=== PATIENT | female | born 1945 | race Caucasian/White ===

== ENCOUNTER 2017-09-18 06:01 | Day surgery (SDC) | payer OTHER ==
[~2017-09-18] VITALS: Ht 154.9 cm; Wt 57.6 kg
[~2017-09-18 06:01] MED LIST: ASPI81CH PO; CALTRATE 600 +1 EACH PO; ESTR2 PO; FISHOIL; ISOMON30 PO; METO25ER PO; OMEP20ER PO; Prilosec Otc20 MG PO
[2017-09-19 05:40] LABS: BASOPHILS ABSOLUTE AUTO 0.04 K/mm3 (0.00-0.23); BASOPHILS PERCENT AUTO 1 % (0-2); EOSINOPHILS ABSOLUTE AUTO 0.06 K/mm3 (0.00-0.68); EOSINOPHILS PERCENT AUTO 1 % (0-6); Hematocrit 30.3 % (33.0-51.0); Hemoglobin 10.1 g/dL (11.5-16.0); IMMATURE GRAN ABSOLUTE AUTO 0.03 K/mm3 (0.00-0.10); IMMATURE GRAN PERCENT AUTO 0 % (0-1); LYMPHOCYTES ABSOLUTE AUTO 1.05 K/mm3 (0.84-5.20); LYMPHOCYTES PERCENT AUTO 15 % (21-46); MONOCYTES ABSOLUTE AUTO 0.87 K/mm3 (0.16-1.47); MONOCYTES PERCENT AUTO 12 % (4-13); Mean Corpuscular HGB 31.8 pg (26.0-34.0); Mean Corpuscular HGB Conc 33.3 g/dL (31.5-36.5); Mean Corpuscular Volume 95 fL (80-100); Mean Platelet Volume 10.5 fL (9.1-12.4); NEUTROPHILS ABSOLUTE AUTO 4.99 K/mm3 (1.96-9.15); NEUTROPHILS PERCENT AUTO 71 % (41-73); Platelet Count 160 K/mm3 (150-400); RDW Coefficient Variation 12.5 % (11.7-14.2); RDW Standard Deviation 44.4 fL (35.1-46.3); Red Blood Cell Count 3.18 M/mm3 (3.80-5.20); White Blood Cell Count 7.04 K/mm3 (4.00-11.30)
[2017-09-19 05:57] LABS: Anion Gap 7 mmol/L (6-16); Blood Urea Nitrogen 10 mg/dL (8-24); Bun/Creatinine Ratio 18.9 (12.0-20.0); CO2, Blood 25 mmol/L (21-32); Calcium, Blood 8.2 mg/dL (8.5-10.1); Chloride, Blood 103 mmol/L (98-108); Creatinine, Blood 0.53 mg/dL (0.40-1.00); Glomerular Filtration Rate >60 (60-); Glucose, Blood 124 mg/dL (70-99); Potassium, Blood 3.8 mmol/L (3.5-5.5); Sodium, Blood 135 mmol/L (136-145)
[2017-09-19] MEDS ORDERED: HYDR1TAB94 PO (13:28)
[2017-09-19] MEDS ORDERED: DOCU100 PO (13:30)
[2017-09-19] MEDS ORDERED: ASPI325EC PO ×2 (13:31→13:34)
[2017-09-19] MEDS ORDERED: ONDA4ODT MM (13:33)
== END 2017-09-19 14:26 | disposition home or self-care (01) ==
LOC: SURS 06:01 → PRE IP 06:01 → ORSCMMR 06:01 → PRE IP 07:30 → EDSTATUS 07:30 → SURS 11:15 → ORSCMMR 09-19 14:26 → SURS 09-19 14:26
PROVIDERS: Orthopaedic Surgery
PROC: 0SRD0J9 Replacement of Left Knee Joint with Synthetic Substitute, Cemented, Open Approach (ICD-10-PCS; principal; 2017-09-18 07:30)
DX: M17.12 Unilateral primary osteoarthritis, left knee (principal); E78.00 Pure hypercholesterolemia, unspecified; Z79.899 Other long term (current) drug therapy; Z79.82 Long term (current) use of aspirin
CPT/HCPCS: 36415; 73560-LT; 80048; 85025; 86850; 86900; 86901; 88300; 97110; 97116; 97162; 97530; C1713; C1776; G8978; G8979; J0171; J0690; J0735; J1885; J2250; J2405; J2765; J2795; J3010; J7120

== ENCOUNTER 2019-04-29 05:58 | Day surgery (SDC) | payer OTHER ==
[~2019-04-29] VITALS: Ht 154.9 cm; Wt 59.8 kg
[~2019-04-29 05:58] MED LIST changes: +ASPI325EC PO; +DOCU100 PO; +HYDR1TAB94 PO; +ONDA4ODT MM
--- NOTE | 2019-04-29 06:37 | NUR ---
History, Chart, Medications and Allergies reviewed before start of procedure. Lungs clear T/O to Auscultation. Patient confirms NPO status and agrees with scheduled surgery. Pre-Op teaching done. Pt verbalizes understanding. Patient reports completing Chlorhexadine shower X2 prior to admission to hospital.
--- NOTE | 2019-04-29 17:58 | NUR ---
SHIFT SUMMARY PT CAME TO SURGICAL FLOOR TODAY AFTER R KNEE SURGERY. PT HAS REPORTED PAIN AND HAS BEEN MEDICATED PRN PER ORDERS. PT UP TO CHAIR TODAY, VOIDED, AND IS TOLERATING FLUIDS AND SOME FOOD. POLAR PACK IN PLACE ON R KNEE.
[2019-04-30 04:55] LABS: BASOPHILS ABSOLUTE AUTO 0.05 K/mm3 (0.00-0.23); BASOPHILS PERCENT AUTO 1 % (0-2); EOSINOPHILS ABSOLUTE AUTO 0.15 K/mm3 (0.00-0.68); EOSINOPHILS PERCENT AUTO 2 % (0-6); Hematocrit 33.2 % (33.0-51.0); Hemoglobin 10.8 g/dL (11.5-16.0); IMMATURE GRAN ABSOLUTE AUTO 0.02 K/mm3 (0.00-0.10); IMMATURE GRAN PERCENT AUTO 0 % (0-1); LYMPHOCYTES ABSOLUTE AUTO 0.91 K/mm3 (0.84-5.20); LYMPHOCYTES PERCENT AUTO 13 % (21-46); MONOCYTES ABSOLUTE AUTO 0.94 K/mm3 (0.16-1.47); MONOCYTES PERCENT AUTO 13 % (4-13); Mean Corpuscular HGB Conc 32.5 g/dL (31.5-36.5); Mean Corpuscular Volume 98 fL (80-100); NEUTROPHILS ABSOLUTE AUTO 5.08 K/mm3 (1.96-9.15); NEUTROPHILS PERCENT AUTO 71 % (41-73); Platelet Count 176 K/mm3 (150-400); RDW Coefficient Variation 12.9 % (11.7-14.2); RDW Standard Deviation 46.4 fL (35.1-46.3); Red Blood Cell Count 3.38 M/mm3 (3.80-5.20); White Blood Cell Count 7.15 K/mm3 (4.00-11.30)
[2019-04-30 05:16] LABS: Anion Gap 5 mmol/L (6-16); Blood Urea Nitrogen 12 mg/dL (8-24); Bun/Creatinine Ratio 19.7 (12.0-20.0); CO2, Blood 27 mmol/L (21-32); Calcium, Blood 8.5 mg/dL (8.5-10.1); Chloride, Blood 111 mmol/L (98-108); Creatinine, Blood 0.61 mg/dL (0.40-1.00); Glomerular Filtration Rate >60 (60-); Glucose, Blood 120 mg/dL (70-99); Potassium, Blood 4.2 mmol/L (3.5-5.5); Sodium, Blood 143 mmol/L (136-145)
--- NOTE | 2019-04-30 07:23 | NUR ---
SUMMARY POD #1 DRSG REMAINS C/D/I. PT HAS BEEN UP TO THE BATHROOM 1 ASSIST USING FWW/GAIT BELT WITH NO PROBLEMS. PAIN MANAGED WITH TYLENOL & TORADOL. PT REPORTS MILD NAUSEA AND THINKS IT MAY BE DUE TO NARCOTICS GIVEN EARLIER IN THE DAY, REFUSES NAUSEA MEDS. TOLERATING SMALL AMOUNTS OF PO INTAKE. VOIDING WNL. SCD'S, TEDS AND POLAR PACK IN PLACE. CALL LIGHT IN REACH. REPORT GIVEN TO DAY RN.
--- NOTE | 2019-04-30 11:20 | NUR ---
Patient is sitting on a chair and alert with spouse, Jasper, bedside. Patient tells me about her surgery and about the recovery ahead. Patient explains that she had the same surgery on her other knee 20 months ago so she knows what she is facing. Patient shares about her family, the loss of her former and about her spiritual journey (patient attends [facility] [employer] [employer] currently). 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 Patient responds well and voices appreciation for the visit.
[2019-04-30] MEDS ORDERED: HYDR1TAB94 PO (15:19)
[2019-04-30] MEDS ORDERED: ONDA4ODT SL (15:21)
--- NOTE | 2019-04-30 15:45 | NUR ---
[id number] DISCHARGE TO HOME WITH FAMILY
--- NOTE | 2019-04-30 15:51 | NUR ---
DISCHARGE SUMMARY PT A&OX4, VSS, LEFT FLOOR VIA WC WITH PROTOTYPE SEWER TO GO HOME WITH AND DAUGHTER, WITH ALL PERSONAL POSSESSIONS INCLUDING DISCHARGE PACKET AND 2 AQUACEL, ELAN LYNDON. DC INSTRUCTIONS PROVIDED. PT AND FAMILY REP UNDERSTANDING THOSE INSTRUCTIONS. IV DC'D.
--- NOTE | 2019-05-01 14:38 | NUR ---
05/01/19 1438 Hali Briones AUDITS, VERIFICATIONS.
[2019-05-28] MEDS ORDERED: ASPI81CH PO (14:53)
== END 2019-04-30 15:40 | disposition home or self-care (01) ==
LOC: ORSCMMR 05:58 → ORD 07:30 → SURS 11:15 → ORSCMMR 04-30 15:40
PROVIDERS: Orthopaedic Surgery
PROC: 0SRC0J9 Replacement of Right Knee Joint with Synthetic Substitute, Cemented, Open Approach (ICD-10-PCS; principal; 2019-04-29 07:30)
DX: M17.11 Unilateral primary osteoarthritis, right knee (principal); I10 Essential (primary) hypertension; R00.0 Tachycardia, unspecified; Z79.899 Other long term (current) drug therapy; Z79.82 Long term (current) use of aspirin
CPT/HCPCS: 36415; 73560-RT; 80048; 83735; 85025; 86850; 86900; 86901; 88300; 97110; 97116; 97162; C1776; J0171; J0690; J0735; J1885; J2250; J2405; J2704; J2795; J3010; J7120

== ENCOUNTER 2019-05-26 15:45 | Emergency (ER) | payer OTHER ==
[~2019-05-26] VITALS: Ht 154.9 cm; Wt 59.0 kg
[~2019-05-26 15:45] MED LIST changes: +ONDA4ODT SL
[2019-05-26] MEDS ORDERED: Roxicodone5 MG PO (17:57)
[2019-05-26] MEDS ORDERED: Zofran8 MG PO (17:57)
[2019-05-28] MEDS ORDERED: ASPI81CH PO (14:53)
== END 2019-05-26 18:43 | disposition home or self-care (01) ==
LOC: ER 15:45
DX: S52.502A Unspecified fracture of the lower end of left radius, initial encounter for closed fracture (principal); I10 Essential (primary) hypertension; E78.5 Hyperlipidemia, unspecified; W01.0XXA Fall on same level from slipping, tripping and stumbling without subsequent striking against object, initial encounter; Y93.01 Activity, walking, marching and hiking
CPT/HCPCS: 25605; 36415; 73110; 76000; 96374-59; 96375-59; 99152; 99283-25; J1170; J2405; J2704; J3010; J7030

== ENCOUNTER 2019-05-30 11:06 | Day surgery (SDC) | payer OTHER ==
[~2019-05-30] VITALS: Ht 154.9 cm; Wt 58.8 kg
[~2019-05-30 11:06] MED LIST changes: +Roxicodone5 MG PO; +Zofran8 MG PO
--- NOTE | 2019-05-30 12:11 | NUR ---
Ambulatory in Day Surgery. History, Chart, Medications and Allergies reviewed before start of procedure. Lungs clear T/O to Auscultation. Patient confirms NPO status and agrees with scheduled surgery. Pre-Op teaching done. Pt verbalizes understanding. Patient States Post-Procedure ride home has been arranged.
--- NOTE | 2019-05-30 16:38 | NUR ---
"DAY SURGERY RN | DISCHARGE VSS. A/O. PAIN DECREASING. DENIES NAUSEA. DISCHARGE INSTRUCTIONS GIVEN TO PATIENT. PATIENT FAMILY GIVEN RX PRIOR TO SURGERY. TOLERATES PO FLUIDS AND WATER. GOOD CIRCULATION AT SITE. SITE C/D/I. PT STEADY ON FEET. ALL BELONGINGS RETURNED TO PATIENT. TAKEN IN WHEELCHAIR TO FRONT ENTRANCE BY THIS RN. FAMILY IS RIDE HOME."
== END 2019-05-30 23:20 | disposition home or self-care (01) ==
LOC: ORSCMMR 11:06 → ORD 12:30 → ORSCMMR 23:20
PROVIDERS: Orthopaedic Surgery
PROC: 0PSJ04Z Reposition Left Radius with Internal Fixation Device, Open Approach (ICD-10-PCS; principal; 2019-05-30 12:30)
DX: S52.502A Unspecified fracture of the lower end of left radius, initial encounter for closed fracture (principal); E78.00 Pure hypercholesterolemia, unspecified; Z79.899 Other long term (current) drug therapy; Z79.82 Long term (current) use of aspirin
CPT/HCPCS: A9270-GY; C1713; J0690; J1170; J2250; J2765; J3010; J7120

== ENCOUNTER → 2021-06-07 | Outpatient (CLI) | payer OTHER ==
[2021-06-08 16:15] LABS: CORONAVIRUS (COVID19) CSH-NRL Positive (Negative)
== END | disposition home or self-care (01) ==
LOC: LAB SHORT 08:25 → LAB 08:25
PROVIDERS: Physician Assistant
DX: U07.1 COVID-19 (principal)
CPT/HCPCS: U0003

== ENCOUNTER 2021-09-19 10:31 | Emergency (ER) | payer OTHER ==
[~2021-09-19] VITALS: Ht 157.5 cm; Wt 59.0 kg
[2021-09-19 11:30] LABS: BASOPHILS ABSOLUTE AUTO 0.06 K/mm3 (0.00-0.23); BASOPHILS PERCENT AUTO 1 % (0-2); EOSINOPHILS ABSOLUTE AUTO 0.13 K/mm3 (0.00-0.68); EOSINOPHILS PERCENT AUTO 3 % (0-6); Hematocrit 41.1 % (33.0-51.0); Hemoglobin 13.6 g/dL (11.5-16.0); IMMATURE GRAN ABSOLUTE AUTO 0.02 K/mm3 (0.00-0.10); IMMATURE GRAN PERCENT AUTO 0 % (0-1); LYMPHOCYTES ABSOLUTE AUTO 1.35 K/mm3 (0.84-5.20); LYMPHOCYTES PERCENT AUTO 26 % (21-46); MONOCYTES ABSOLUTE AUTO 0.54 K/mm3 (0.16-1.47); MONOCYTES PERCENT AUTO 10 % (4-13); Mean Corpuscular HGB 31.5 pg (26.0-34.0); Mean Corpuscular HGB Conc 33.1 g/dL (31.5-36.5); Mean Corpuscular Volume 95 fL (80-100); Mean Platelet Volume 10.9 fL (9.1-12.4); NEUTROPHILS ABSOLUTE AUTO 3.11 K/mm3 (1.96-9.15); NEUTROPHILS PERCENT AUTO 60 % (41-73); Platelet Count 217 K/mm3 (150-400); RDW Standard Deviation 45.9 fL (35.1-46.3); Red Blood Cell Count 4.32 M/mm3 (3.80-5.20); White Blood Cell Count 5.21 K/mm3 (4.00-11.30)
[2021-09-19 11:46] LABS: Alanine Aminotransfer (ALT/SGP 16 U/L (12-78); Albumin/Globulin Ratio 1.1 (0.8-1.8); Alk Phos 69 U/L (50-136); Anion Gap 7 mmol/L (6-16); Aspartate Aminotrans (AST/SGOT 13 U/L (12-37); Bilirubin, Total 0.3 mg/dL (0.1-1.0); Blood Urea Nitrogen 17 mg/dL (8-24); Bun/Creatinine Ratio 24.5 (12.0-20.0); CO2, Blood 24 mmol/L (21-32); Calcium, Blood 9.3 mg/dL (8.5-10.1); Chloride, Blood 110 mmol/L (98-108); Globulin, Blood 3.5 g/dL (2.2-4.0); Glomerular Filtration Rate >60 (60-); Glucose, Blood 149 mg/dL (70-99); Potassium, Blood 3.8 mmol/L (3.5-5.5); Sodium, Blood 141 mmol/L (136-145); Total Protein, Blood 7.5 g/dL (6.4-8.2)
== END 2021-09-19 15:11 | disposition home or self-care (01) ==
LOC: ER 10:31
PROVIDERS: Family Medicine
DX: I77.71 Dissection of carotid artery (principal); I10 Essential (primary) hypertension; Z79.82 Long term (current) use of aspirin; Z79.899 Other long term (current) drug therapy; Z88.1 Allergy status to other antibiotic agents
CPT/HCPCS: 36415; 70450; 70496; 70498; 80053; 85025; 99284-25; A9270; Q9967